=== PATIENT | male | born 1985 | race Hispanic/Latino ===

== ENCOUNTER → 2019-03-07 | Outpatient (CLI) | payer OTHER, MEDICAID | LOC: M LRY 10:38 | PROVIDERS: ATTEND Family Medicine | DX: Z53.9 Procedure and treatment not carried out, unspecified reason (principal); M79.672 Pain in left foot ==

== ENCOUNTER → 2019-03-07 | Outpatient (REF) | payer OTHER, MEDICAID | LOC: M SFHCLERA 09:54 | PROVIDERS: ATTEND Family Medicine | DX: E66.9 Obesity, unspecified (principal) ==

== ENCOUNTER → 2019-03-08 | Outpatient (CLI) | payer OTHER, MEDICAID ==
--- NOTE | 2019-03-09 02:40 | REP ---
Clinical: Left foot pain Technique: AP, lateral, bilateral oblique views left foot . Findings: The osseous structures and joint spaces are intact and normal. Subtle irregularity in the region of the medial malleolus may reflect old ankle injury and is incompletely evaluated. There is no evidence for acute fracture or dislocation. Surrounding soft tissues are unremarkable. No subcutaneous emphysema or radiodense foreign body. Impression: No acute fracture or dislocation. Subtle irregularity suspected at the medial malleolus which may reflect old injury. Electronically Signed by Humberto Byrnes MD 03/09/2019 02:32 A
== END ==
LOC: M LRY 12:56
PROVIDERS: ATTEND Family Medicine
DX: M79.672 Pain in left foot (principal)

== ENCOUNTER → 2019-03-08 | Outpatient (REF) | payer OTHER, MEDICAID ==
[2019-03-08 17:14] LABS: ALBUMIN 4.3 GM/DL (3.2-5.2); BILIRUBIN,DIRECT 0.1 MG/DL (0.0-0.2); BILIRUBIN,TOTAL 0.4 MG/DL (0.2-1.0); CHOLESTEROL RISK RATIO 8.777 (<5); THYROID STIMULATING HORMONE 0.89 uIU/ML (0.358-3.740); TOTAL PROTEIN 8.1 GM/DL (6.4-8.2)
[2019-03-08 17:25] LABS: HEMOGLOBIN A1c 5.8 %
== END ==
LOC: M SFHCLERA 12:44
PROVIDERS: ATTEND Family Medicine
DX: E66.9 Obesity, unspecified (principal)

== ENCOUNTER → 2019-03-21 | Outpatient (CLI) | payer OTHER ==
--- NOTE | 2019-03-26 10:51 | ECHO ---
DATE OF PROCEDURE: 03/21/2019 REFERRING PHYSICIAN: Dr. Jb Lora INDICATION: Congenital malformation of the heart, unspecified. HEIGHT: 67 inches WEIGHT: 185 pounds 2D MEASUREMENTS: Left atrium: 3.7 cm Ventricular septum: 1.03 cm Posterior wall: 1.03 cm Left ventricle diastole: 4.0 cm Aortic root: 2.5 cm Aortic annulus: 2.0 cm Inferior vena cava: 2.0 cm DOPPLER MEASUREMENTS: Aortic valve velocity: 143 cm/s LVOT velocity: 91.6 cm/s No aortic regurgitation. Very mild mitral regurgitation, within normal limits. Mitral E velocity: 78.6 cm/s Mitral A velocity: 52.9 cm/s Mitral deceleration time: 211 ms No tricuspid regurgitation. Mild pulmonic regurgitation, within normal limits. Pulmonary artery systolic pressure: 25 mmHg MITRAL ANNULAR TISSUE DOPPLER: E prime septal: 8.7 cm/s E prime lateral: 13.5 cm/s DESCRIPTION: Rhythm was sinus bradycardia. Image quality was good. No pericardial effusion. This was a 2D, M-mode, color flow Doppler and pulse wave Doppler examination and included mitral annular tissue Doppler. No pericardial effusion. CONCLUSIONS: 1. Normal echocardiogram Doppler. 2. Normal left ventricle internal dimensions and wall thickness. Normal regional left ventricular (LV) wall motion and wall thickening. Normal LV systolic function. Left ventricular ejection fraction (LVEF) 63% by visual estimate. Normal LV diastolic function. 3. Otherwise normal appearing echocardiogram Doppler findings. Aortic valve was 3-cusp. No mitral valve prolapse.
== END ==
LOC: M CARPUL 10:42
PROVIDERS: ATTEND Family Medicine
DX: Q24.9 Congenital malformation of heart, unspecified (principal); R00.1 Bradycardia, unspecified

== ENCOUNTER → 2019-04-04 | Outpatient (REF) | payer OTHER, MEDICAID | LOC: M SFHCLERA 13:59 | PROVIDERS: ATTEND Family Medicine | DX: R94.5 Abnormal results of liver function studies (principal) ==

== ENCOUNTER → 2019-04-11 | Outpatient (REF) | payer OTHER, MEDICAID ==
[2019-04-11 19:04] LABS: ALBUMIN 4.2 GM/DL (3.2-5.2); ALT/SGPT 43 U/L (12-78); BILIRUBIN,DIRECT 0.2 MG/DL (0.0-0.2); BILIRUBIN,TOTAL 0.5 MG/DL (0.2-1.0); FERRITIN 171 NG/ML (26-388); IRON (FE) 76 UG/DL (65-175); PERCENT SATURATION 23.4 % (19.7-50.0); TOTAL IRON BINDING CAPACITY 325 UG/DL (250-450); TOTAL PROTEIN 7.8 GM/DL (6.4-8.2)
[2019-04-12 07:10] LABS: HEPATITIS B SURFACE ANTIGEN NEGATIVE (NEGATIVE)
[2019-04-12 07:37] LABS: HEPATITIS B CORE ANTIBODY IGM NEGATIVE (NEGATIVE)
[2019-04-12 07:39] LABS: HEPATITIS A ANTIBODY IGM NEGATIVE (NEGATIVE)
== END ==
LOC: M SFHCLERA 10:55
PROVIDERS: ATTEND Family Medicine
DX: R94.5 Abnormal results of liver function studies (principal)